=== PATIENT | female | born 1995 | race Caucasian/White ===

== ENCOUNTER 2017-05-07 06:49 | Emergency (ER) | payer MEDICAID ==
[~2017-05-07] VITALS: Ht 162.6 cm; Wt 107.0 kg
[~2017-05-07 06:49] MED LIST: FERR-63 PO; IBUP-779 PO; PREN-142 PO
[2017-05-07 07:32] VITALS: BP 119/77
== END 2017-05-07 08:47 | disposition home or self-care (01) ==
LOC: ER 06:49
DX: L50.9 Urticaria, unspecified (principal)
CPT/HCPCS: 99282

== ENCOUNTER 2017-05-20 22:15 | Emergency (ER) | payer MEDICAID ==
[~2017-05-20] VITALS: Ht 165.1 cm; Wt 82.0 kg
[2017-05-21] MEDS ORDERED: LIDOCAINE HCL 1% 20ML VIAL (Pyxis) INJ MC ONE (03:15)
[2017-05-21] MEDS ORDERED: BACITRACIN ZINC OINT UDPKT TOP ONE (03:15)
[2017-05-21] MEDS ORDERED: IBUPROFEN 600MG TABLET PO ONE (03:15)
[2017-05-21] MEDS ORDERED: TETANUS, DIPHTHERIA, PERTUSSIS VAC/PF 0.5ML (>7YR OLD) IM ONE (03:15)
[2017-05-21 03:30] VITALS: BP 150/85
== END 2017-05-21 04:20 | disposition home or self-care (01) ==
LOC: ER 22:15
DX: S61.412A Laceration without foreign body of left hand, initial encounter (principal); W25.XXXA Contact with sharp glass, initial encounter; Y93.89 Activity, other specified; Y92.89 Other specified places as the place of occurrence of the external cause; Y99.0 Civilian activity done for income or pay
CPT/HCPCS: 12001; 90471; 90715; 99283; J3490; Z7610

== ENCOUNTER 2017-05-30 10:11 | Emergency (ER) | payer MEDICAID ==
[~2017-05-30] VITALS: Ht 162.6 cm; Wt 75.0 kg
[2017-05-30 10:33] VITALS: BP 120/79
== END 2017-05-30 12:57 | disposition left against medical advice (07) ==
LOC: ER 12:54
DX: Z48.02 Encounter for removal of sutures (principal); Z53.21 Procedure and treatment not carried out due to patient leaving prior to being seen by health care provider

== ENCOUNTER 2020-05-28 13:16 | Emergency (ER) | payer MEDICAID ==
[~2020-05-28] VITALS: Ht 162.6 cm; Wt 86.0 kg
[~2020-05-28 13:16] MED LIST changes: -PREN-142 PO; +PRENATAL ONE T1 EACH PO
[2020-05-28] MEDS ORDERED: IBUPROFEN 600MG TABLET PO ONE (16:00)
[2020-05-28 16:22] VITALS: BP 141/90
== END 2020-05-28 16:38 | disposition home or self-care (01) ==
LOC: ER 13:16
DX: S40.012A Contusion of left shoulder, initial encounter (principal); S43.402A Unspecified sprain of left shoulder joint, initial encounter; W01.0XXA Fall on same level from slipping, tripping and stumbling without subsequent striking against object, initial encounter; Y93.89 Activity, other specified; Y92.018 Other place in single-family (private) house as the place of occurrence of the external cause
CPT/HCPCS: 73030; 99283